=== PATIENT | female | born 1970 | race Two or more races ===

== ENCOUNTER → 2017-11-02 | Outpatient (CLI) | payer OTHER | END | disposition home or self-care (01) | LOC: MAMMO 12:22 | DX: Z12.31 Encounter for screening mammogram for malignant neoplasm of breast (principal) | CPT/HCPCS: 77067 ==

== ENCOUNTER → 2020-04-19 | Outpatient (CLI) | payer OTHER ==
--- NOTE | 2020-04-19 16:49 | RAD ---
Examination: MG 2D BILAT SCREENING History: SCREENING MAMMOGRAM / Comparison/Correlation: 09/30/2013, 12/14/2014, 12/15/2011 Technique: MLO and CC digital tomosynthesis (3D) images obtained. Radiologist reviewed these images on dedicated workstation. Findings: Breast Tissue Density B : There are scattered areas of fibroglandular density. There are no dominant masses, suspicious microcalcifications, or architectural distortion. A small a symmetry is present at the far posterior right upper breast approximately 14.2 cm from the nipple. Th is is not definitely seen on prior exams. It measures 0.65 cm diameter. IMPRESSION: Spot compression imaging of the new right breast asymmetry of the lower axillary level recommended. T omsynthesis imaging may be needed. Ultrasound may be needed. BI-RADS Category 0: Incomplete: Need additional imaging evaluation. The images were reviewed with computer-aided detection. Patient information is entered into reminder system with a target due date for the next screening harshad mogram. Mammography is the most sensitive method for finding small breast cancers, but it does not detect the m all and is not a substitute for careful clinical examination. A negative mammogram does not negate a clinically suspicious finding and should not result in delay in biopsying a clinically suspicious a bnormality. "Our facility is accredited by the [employer] Mamm[employer]." Electronically signed by: Jerod Kendrick MD (04/19/2020 4:46 PM) [id number]
== END ==
LOC: MAMMO 14:23
PROVIDERS: ATTEND Family Medicine
DX: Z12.31 Encounter for screening mammogram for malignant neoplasm of breast (principal)
CPT/HCPCS: 77067

== ENCOUNTER → 2020-05-15 | Outpatient (CLI) | payer OTHER ==
--- NOTE | 2020-05-15 12:22 | RAD ---
EXAM: Right breast diagnostic mammogram with tomosynthesis; right breast sonogram. HISTORY: 50-year-old female presents for evaluation of asymmetry within the right breast demonstrated on a mammogram dated 04/19/2020. TECHNIQUE: Full-field digital and spot compression 2D and 3D tomosynthesis images of the right breast are obtained. Sonographic imaging of the right breast targeted to the site of mammographic asymmetry was also performed. COMPARISON: 04/19/2020 BREAST PARENCHYMAL DENSITY: Level B - Scattered fibroglandular densities. FINDINGS: The asymmetry of concern within the posterior superior right breast is less conspicuous wit h the additional mammographic views, favoring a component of summation artifact. There is a small per sistent nodular density within the posterior medial breast at the 3:00 position. There is no architec tural distortion or suspicious calcification. Sonographic imaging of the right breast demonstrates a 8 mm oval nonvascular hypoechoic lesion at the 3:00 position 11 cm from the nipple. This corresponds with the site of persistent nodularity. The im aging appearance favors a benign etiology such as a lobule of normal breast parenchyma, a small fibro cystic lesion or ill-defined lymph node. IMPRESSION: 1. Decreased conspicuity of asymmetry within the posterior superior right breast, possibly correspond ing with a benign-appearing hypoechoic lesion demonstrated sonographically. 2. BI-RADS Category 3: Probably benign finding(s). Short term follow up with a diagnostic right breas t mammogram and sonogram in 6 months is recommended. If your mammogram demonstrates that you have dense breast tissue, which could hide abnormalities, and if you have other risk factors for breast cancer that have been identified, you might benefit from s upplemental screening tests that may be suggested by your ordering physician. Dense breast tissue, i n and of itself, is a relatively common condition. This information is not provided to cause undue c oncern, but rather to raise your awareness and to promote discussion with your physician regarding th e presence of other risk factors, in addition to dense breast tissue. A report of your mammography re sults will be sent to you and your physician. You should contact your physician if you have any ques tions or concerns regarding this report. Mammography is a sensitive method for finding small breast cancers, but it does not detect them all a nd is not a substitute for careful clinical examination. A negative mammogram does not negate a clin ically suspicious finding and should not result in delay in biopsying a clinically suspicious abnorma lity. PQRS compliance statement - Patient information was entered into a reminder system with a target due date for the next mammogram. "Our facility is accredited by the [employer] Mammography [employer]." Electronically signed by: Nancy Chatterjee MD (05/15/2020 12:19 PM) [id number]
== END ==
LOC: MAMMO 10:49
PROVIDERS: ATTEND Family Medicine
DX: R92.8 Other abnormal and inconclusive findings on diagnostic imaging of breast (principal); N64.9 Disorder of breast, unspecified
CPT/HCPCS: 76641; 77065; G0279; 77061

== ENCOUNTER → 2020-12-10 | Outpatient (CLI) | payer OTHER ==
--- NOTE | 2020-12-10 13:53 | RAD ---
EXAM: Right breast diagnostic mammogram with tomosynthesis; right breast sonogram. HISTORY: 50-year-old female presents for follow-up evaluation of asymmetry within the right breast de monstrated on a prior diagnostic mammogram dated 05/15/2020. TECHNIQUE: Full-field digital craniocaudal and mediolateral oblique 2D and 3D tomosynthesis images of the right breast are obtained for evaluation. Computer aided detection was applied. Sonographic imag ing of the right breast targeted to the site of prior nodularity was performed. COMPARISON: 05/15/2020 and 04/19/2020 BREAST PARENCHYMAL DENSITY: Level B - Scattered fibroglandular densities. FINDINGS: There is no new suspicious mass, microcalcification or region of architectural distortion. The nodular asymmetry of concern on the prior mammogram is not conspicuous on the current exam. There are a few benign calcifications. Sonographic imaging of the right breast demonstrates no suspicious finding. IMPRESSION: 1. No new suspicious mammographic or sonographic finding. 2. BI-RADS Category 2: Benign finding(s). RECOMMENDATION: The patient will be due for bilateral mammography in 5 months according to a previous ly established mammography interval. If your mammogram demonstrates that you have dense breast tissue, which could hide abnormalities, and if you have other risk factors for breast cancer that have been identified, you might benefit from s upplemental screening tests that may be suggested by your ordering physician. Dense breast tissue, i n and of itself, is a relatively common condition. This information is not provided to cause undue c oncern, but rather to raise your awareness and to promote discussion with your physician regarding th e presence of other risk factors, in addition to dense breast tissue. A report of your mammography re sults will be sent to you and your physician. You should contact your physician if you have any ques tions or concerns regarding this report. Mammography is a sensitive method for finding small breast cancers, but it does not detect them all a nd is not a substitute for careful clinical examination. A negative mammogram does not negate a clin ically suspicious finding and should not result in delay in biopsying a clinically suspicious abnorma lity. PQRS compliance statement - Patient information was entered into a reminder system with a target due date for the next mammogram. "Our facility is accredited by the [employer] Mammography [employer]." Electronically signed by: Nancy Chatterjee MD (12/10/2020 1:51 PM) [id number]
== END ==
LOC: US 13:00
PROVIDERS: ATTEND Family Medicine
DX: R92.2 Inconclusive mammogram (principal)
CPT/HCPCS: 76641; 77065; G0279; 77061